=== PATIENT | male | born 1995 | race Caucasian/White ===

== ENCOUNTER 2017-06-18 15:07 | Emergency (ER) | payer BC ==
[~2017-06-18] VITALS: Ht 170.2 cm; Wt 93.0 kg
[2017-06-18 15:10] VITALS: BP 131/88
== END 2017-06-18 15:55 | disposition home or self-care (01) ==
LOC: ER 15:07
DX: S51.811A Laceration without foreign body of right forearm, initial encounter (principal); W26.8XXA Contact with other sharp object(s), not elsewhere classified, initial encounter; Y93.89 Activity, other specified; Y92.89 Other specified places as the place of occurrence of the external cause; Y99.8 Other external cause status